=== PATIENT | male | born 1965 | race Caucasian/White ===

== ENCOUNTER 2025-01-11 06:00 | Day surgery (SDC) | payer OTHER ==
[2025-01-11] MEDS ORDERED: fentaNYL CITRATE 50 MCG/ML AMPUL IV ONE (08:30)
[2025-01-11] MEDS ORDERED: MIDAZOLAM HCL 2 MG/2 ML VIAL IV ONE (08:30)
[2025-01-11] MEDS ORDERED: DIPHENHYDRAMINE HCL 50 MG/ML VIAL 1ML IV ONE (08:30)
[2025-01-11] MEDS ORDERED: ENALAPRILAT DIHYDRATE 1.25 MG/ML VIAL IV ONE (08:40)
== END 2025-01-11 10:45 | disposition home or self-care (01) ==
LOC: AMB-ENDOS 06:00
PROVIDERS: ATTEND Surgery
DX: D12.8 Benign neoplasm of rectum (principal); K57.30 Diverticulosis of large intestine without perforation or abscess without bleeding; N32.1 Vesicointestinal fistula; R10.9 Unspecified abdominal pain

== ENCOUNTER 2025-05-29 12:43 | Inpatient (IN) | payer OTHER ==
[~2025-05-29] VITALS: Ht 174 cm; Wt 90.7 kg
[2025-05-29] MEDS ORDERED: HYDROCHLOROTH12.5 M2 PO (13:18)
[2025-05-29] MEDS ORDERED: NIFEDIPINE ER30 MG PO (13:19)
[2025-05-29] MEDS ORDERED: LOSARTAN POTASS50 MG PO (13:19)
[2025-05-29] MEDS ORDERED: ROSUVASTATIN CA20 MG PO (13:19)
[2025-06-01] MEDS ORDERED: BUPIVACAINE HCL/MPF 0.5% 30ML VIAL ONE (07:19)
[2025-06-01] MEDS ORDERED: CEFTRIAXONE SODIUM 2,000 MG VIAL ONE (07:19)
[2025-06-01] MEDS ORDERED: SUGAMMADEX SODIUM 200 MG/2 ML VIAL IV ONE (10:52)
[2025-06-01] MEDS ORDERED: BUPIVACAINE HCL 30 ML VIAL IJ ONE (11:30)
[2025-06-01] MEDS ORDERED: CEFTRIAXONE SODIUM 2,000 MG VIAL IV ONE (11:30)
[2025-06-01] MEDS ORDERED: METRONIDAZOLE/SODIUM CHLORIDE 500 MG/100 ML PIGGYBACK IV ONE ×2 (11:30→16:09)
[2025-06-01] MEDS ORDERED: LIDOCAINE HCL 1%/EPINEPHRINE 20ML VIAL IJ ONE (11:45)
[2025-06-01] MEDS ORDERED: ACETAMINOPHEN 500 MG GEL..CAP PO SCH (12:13)
[2025-06-01] MEDS ORDERED: OxyCODONE HCL 5 MG TABLET (ROXICODONE) PO PRN (12:15)
[2025-06-01] MEDS ORDERED: RINGERS SOLUTION,LACTATED 1,000 ML IV SCH (12:15)
[2025-06-01] MEDS ORDERED: ONDANSETRON HCL 2 MG/ML VIAL IV PRN (12:15)
[2025-06-01] MEDS ORDERED: MORPHINE SULFATE 4 MG/ML CARTRIDGE IV PRN (12:15)
[2025-06-01] MEDS ORDERED: HYOSCYAMINE SULFATE 0.125 MG TAB.SUBL SL SCH (13:00)
[2025-06-01] MEDS ORDERED: ENALAPRILAT DIHYDRATE 1.25 MG/ML VIAL IV PRN (13:15)
[2025-06-01] MEDS ORDERED: MORPHINE SULFATE 4 MG/ML VIAL IV ONE ×2 (13:40→14:10)
[2025-06-01] MEDS ORDERED: ENALAPRILAT DIHYDRATE 1.25 MG/ML VIAL IV ONE (16:08)
[2025-06-01] MEDS ORDERED: GABAPENTIN 300 MG CAPSULE PO ONE (16:08)
[2025-06-01] MEDS ORDERED: TAMSULOSIN HCL 0.4 MG CAP PO ONE (16:08)
[2025-06-01] MEDS ORDERED: HYOSCYAMINE SULFATE 0.125 MG TAB.SUBL ONE (16:08)
[2025-06-01] MEDS ORDERED: LABETALOL HCL 100 MG/20 ML ML ONE ×2 (16:46→18:42)
[2025-06-01] MEDS ORDERED: LABETALOL HCL 100 MG/20 ML ML IV STA (16:48)
[2025-06-01] MEDS ORDERED: TAMSULOSIN HCL 0.4 MG CAP PO SCH (17:00)
[2025-06-01] MEDS ORDERED: GABAPENTIN 300 MG CAPSULE PO SCH (17:00)
[2025-06-01] MEDS ORDERED: METRONIDAZOLE/SODIUM CHLORIDE 500 MG/100 ML PIGGYBACK IV SCH (17:00)
[2025-06-01] MEDS ORDERED: LACTOBACILLUS ACIDOPHILUS 1 CAP CAP PO SCH (17:00)
[2025-06-01] MEDS ORDERED: AMLODIPINE BESYLATE 5 MG TABLET PO ONE (18:45)
[2025-06-01] MEDS ORDERED: LABETALOL HCL 100 MG/20 ML ML IV ONE (18:45)
[2025-06-01] MEDS ORDERED: ACETAMINOPHEN 500 MG GEL..CAP PO ONE (19:23)
[2025-06-01 20:13] VITALS: BP 158/89; O2SAT 99
[2025-06-01] MEDS ORDERED: CIPROFLOXACIN IN 5 % DEXTROSE 400 MG/200 ML PIGGYBAG IV SCH (21:00)
[2025-06-01] MEDS ORDERED: FAMOTIDINE/PF 20 MG/2 ML VIAL IV PUSH SCH (21:00)
[2025-06-01 21:59] VITALS: BP 158/89; O2SAT 99
[2025-06-02 01:16] VITALS: BP 137/85; O2SAT 97
[2025-06-02 07:28] LABS: BUN CREA RATIO 14.0 (7.0-25.0); CREATININE SERUM 1.2 mg/dL (0.70-1.30); GFR 62.18; GLUCOSE FASTING 177.0 mg/dL (65-100); OSMOLALITY SERUM 280.0 MOSM/KG (275-295)
[2025-06-02 07:54] LABS: BASO % 0.3 % (0.1-1.2); EOS # 0.00 (0.04-0.54); EOS % 0.0 % (0.7-7.0); LYMPH # 0.70 (1.18-3.74); LYMPH % 5.8 % (19.3-53.1); MEAN PLATELET VOLUME 9.00 fl (9.4-12.4); MONO # 1.57 (0.24-0.82); NEUT # 9.81 (1.56-6.13); NEUT % 80.7 % (34.0-71.1); RED CELL DISTRIBUTION WIDTH 12.7 % (11.6-14.4)
[2025-06-02 08:09] LABS: MONO % 12.9 % (4.7-12.5)
[2025-06-02] MEDS ORDERED: NIFEDIPINE 30 MG TAB.SA.OSM PO SCH (09:00)
[2025-06-02] MEDS ORDERED: HYDROCHLOROTHIAZIDE 12.5 MG CAPSULE PO SCH (09:00)
[2025-06-02] MEDS ORDERED: LOSARTAN POTASSIUM 50 MG TABLET PO SCH (09:00)
[2025-06-02 16:00] VITALS: BP 99/60; O2SAT 95
[2025-06-02] MEDS ORDERED: TAMSULOSIN HCL 0.4 MG CAP PO SCH (17:00)
[2025-06-02] MEDS ORDERED: ENOXAPARIN SODIUM 40 MG/0.4 ML SYRINGE SUBCUTANEO SCH (17:00)
[2025-06-02] MEDS ORDERED: ROSUVASTATIN CALCIUM 20 MG TABLET PO SCH (17:00)
[2025-06-02] MEDS ORDERED: INSULIN LISPRO 1,000 UNIT/10 ML UNITS SUBCUTANEO PRN (19:30)
[2025-06-02] MEDS ORDERED: DEXTROSE 50 % IN WATER 0.5 G/ML VIAL IV PRN (19:30)
[2025-06-03 01:43] VITALS: BP 115/76; O2SAT 97
[2025-06-03 08:06] LABS: BASO % 0.2 % (0.1-1.2); EOS # 0.02 (0.04-0.54); EOS % 0.1 % (0.7-7.0); LYMPH # 0.95 (1.18-3.74); LYMPH % 5.8 % (19.3-53.1); MEAN PLATELET VOLUME 9.40 fl (9.4-12.4); MONO # 1.55 (0.24-0.82); MONO % 9.4 % (4.7-12.5); NEUT # 13.88 (1.56-6.13); NEUT % 84.0 % (34.0-71.1); RED CELL DISTRIBUTION WIDTH 12.9 % (11.6-14.4)
[2025-06-03 08:30] VITALS: BP 106/72; O2SAT 95
[2025-06-03 08:56] LABS: ALT/SGPT 40.0 U/L (12-78); AST/SGOT 42.0 U/L (15-37); BILIRUBIN TOTAL 0.74 mg/dL (0.3-1.2); BUN CREA RATIO 15.0 (7.0-25.0); CREATININE SERUM 1.42 mg/dL (0.70-1.30); GFR 51.21; GLOBULINA 3.2 G/DL (2.4-3.5); GLUCOSE FASTING 143.0 mg/dL (65-100); OSMOLALITY SERUM 283.0 MOSM/KG (275-295)
[2025-06-03] MEDS ORDERED: ENOXAPARIN SODIUM 40 MG/0.4 ML SYRINGE SUBCUTANEO SCH (09:00)
[2025-06-03] MEDS ORDERED: 0.9 % SODIUM CHLORIDE 500 ML IV STA (10:35)
[2025-06-03 16:00] VITALS: BP 133/82; BP 143/90; O2SAT 95
[2025-06-03] MEDS ORDERED: MORPHINE SULFATE 4 MG/ML CARTRIDGE IV PRN (18:15)
[2025-06-04 00:41] VITALS: BP 136/83; O2SAT 97
[2025-06-04 07:50] LABS: BASO % 0.3 % (0.1-1.2); EOS # 0.15 (0.04-0.54); EOS % 0.9 % (0.7-7.0); LYMPH # 0.72 (1.18-3.74); LYMPH % 4.3 % (19.3-53.1); MEAN PLATELET VOLUME 9.00 fl (9.4-12.4); MONO # 2.00 (0.24-0.82); NEUT # 13.53 (1.56-6.13); NEUT % 81.6 % (34.0-71.1); RED CELL DISTRIBUTION WIDTH 12.7 % (11.6-14.4)
[2025-06-04 07:56] LABS: MONO % 12.1 % (4.7-12.5)
[2025-06-04 08:28] LABS: BUN CREA RATIO 11.0 (7.0-25.0); CREATININE SERUM 2.97 mg/dL (0.70-1.30); GFR 21.85; GLUCOSE FASTING 131.0 mg/dL (65-100); OSMOLALITY SERUM 286.0 MOSM/KG (275-295)
[2025-06-04 09:03] VITALS: BP 131/88; O2SAT 96
[2025-06-04] MEDS ORDERED: hydrALAZINE HCL 20 MG VIAL IV PRN (16:00)
[2025-06-04] MEDS ORDERED: CEFTRIAXONE SODIUM 2,000 MG VIAL IV SCH (17:00)
[2025-06-04 17:24] VITALS: BP 143/89; O2SAT 97
[2025-06-04 20:19] LABS: URINE APPEARANCE Clear; URINE BILIRRUBIN Negative (NEGATIVE); URINE BLOOD Large; URINE COLOR Yellow; URINE GLUCOSE Negative (NEGATIVE); URINE KETONE Negative (NEGATIVE); URINE LEUKOCYTE Negative; URINE NITRATE Negative; URINE PROTEIN Trace (NEGATIVE); URINE UROBILINOGEN 0.2 E.U./dl
[2025-06-04 20:22] LABS: URINE EPITHELIAL CELLS 2.4 uL (0.0-38.8); URINE RBC 52.2 uL (0.0-20.8); URINE WBC 6.4 uL (0.0-23.2)
[2025-06-04 20:28] LABS: URINE BACTERIA 3.6 uL (0.0-1933); URINE CAST 0.00 uL (0.0-1.40)
[2025-06-05 01:47] VITALS: BP 132/78; O2SAT 98
[2025-06-05 07:10] LABS: BASO % 0.4 % (0.1-1.2); EOS # 0.16 (0.04-0.54); EOS % 1.2 % (0.7-7.0); LYMPH # 0.67 (1.18-3.74); LYMPH % 5.1 % (19.3-53.1); MEAN PLATELET VOLUME 8.90 fl (9.4-12.4); MONO # 1.34 (0.24-0.82); MONO % 10.1 % (4.7-12.5); NEUT # 10.96 (1.56-6.13); NEUT % 82.6 % (34.0-71.1); RED CELL DISTRIBUTION WIDTH 12.5 % (11.6-14.4)
[2025-06-05 07:53] LABS: ALT/SGPT 37.0 U/L (12-78); AST/SGOT 33.0 U/L (15-37); BILIRUBIN TOTAL 0.63 mg/dL (0.3-1.2); BUN CREA RATIO 15.0 (7.0-25.0); CREATININE SERUM 1.91 mg/dL (0.70-1.30); GFR 36.37; GLOBULINA 3.4 G/DL (2.4-3.5); GLUCOSE FASTING 129.0 mg/dL (65-100); OSMOLALITY SERUM 289.0 MOSM/KG (275-295)
[2025-06-05 08:44] VITALS: BP 155/95; O2SAT 96
[2025-06-05] MEDS ORDERED: FAMOTIDINE/PF 20 MG/2 ML VIAL IV PUSH SCH (09:00)
[2025-06-05] MEDS ORDERED: ENOXAPARIN SODIUM 30 MG/0.3 ML SYRINGE SUBCUTANEO SCH (09:00)
[2025-06-05 17:20] VITALS: BP 163/103; O2SAT 97
[2025-06-05] MEDS ORDERED: POTASSIUM BICARBONATE/CIT AC 25 MEQ TABLET.EFF PO SCH (19:15)
[2025-06-05] MEDS ORDERED: NIFEDIPINE 30 MG TAB.SA.OSM PO SCH (21:00)
[2025-06-05 21:34] VITALS: BP 137/80
[2025-06-06] VITALS: BP 117/77; O2SAT 95
[2025-06-06 07:36] LABS: BUN CREA RATIO 19.0 (7.0-25.0); CREATININE SERUM 1.17 mg/dL (0.70-1.30); GFR 64.03; GLUCOSE FASTING 136.0 mg/dL (65-100); OSMOLALITY SERUM 289.0 MOSM/KG (275-295)
[2025-06-06 09:13] VITALS: BP 138/82; O2SAT 95
[2025-06-06] MEDS ORDERED: POTASSIUM CHLORIDE 20MEQ/100ML H2O PB IV NR (11:30)
[2025-06-06 17:30] VITALS: BP 133/88; O2SAT 95
[2025-06-06] MEDS ORDERED: MORPHINE SULFATE 4 MG/ML CARTRIDGE IV PRN (18:15)
[2025-06-07 00:58] VITALS: BP 138/76; O2SAT 98
[2025-06-07 06:57] LABS: BASO % 0.4 % (0.1-1.2); EOS # 0.24 (0.04-0.54); EOS % 1.9 % (0.7-7.0); LYMPH # 1.05 (1.18-3.74); LYMPH % 8.2 % (19.3-53.1); MEAN PLATELET VOLUME 8.30 fl (9.4-12.4); MONO # 1.46 (0.24-0.82); MONO % 11.3 % (4.7-12.5); NEUT # 9.90 (1.56-6.13); NEUT % 76.9 % (34.0-71.1); RED CELL DISTRIBUTION WIDTH 12.3 % (11.6-14.4)
[2025-06-07 07:45] LABS: BUN CREA RATIO 17.0 (7.0-25.0); CREATININE SERUM 0.96 mg/dL (0.70-1.30); GFR 80.45; GLUCOSE FASTING 132.0 mg/dL (65-100); OSMOLALITY SERUM 281.0 MOSM/KG (275-295)
[2025-06-07] MEDS ORDERED: ENOXAPARIN SODIUM 40 MG/0.4 ML SYRINGE SUBCUTANEO SCH (09:00)
[2025-06-07] MEDS ORDERED: MAGNESIUM SULFATE IN WATER 50 ML IV NR (09:00)
[2025-06-07] MEDS ORDERED: POTASSIUM CHLORIDE 20MEQ/100ML H2O PB IV NR (11:00)
[2025-06-07 16:00] VITALS: BP 154/96; O2SAT 98
[2025-06-08 00:21] VITALS: BP 138/72; O2SAT 99
[2025-06-08 08:00] VITALS: BP 132/85; O2SAT 95
[2025-06-08 16:27] VITALS: BP 147/89; O2SAT 95
[2025-06-09 01:10] VITALS: BP 134/80; O2SAT 100
[2025-06-09 07:38] LABS: BASO % 0.5 % (0.1-1.2); EOS # 0.31 (0.04-0.54); EOS % 2.8 % (0.7-7.0); LYMPH # 1.27 (1.18-3.74); LYMPH % 11.4 % (19.3-53.1); MEAN PLATELET VOLUME 8.40 fl (9.4-12.4); MONO # 1.19 (0.24-0.82); MONO % 10.7 % (4.7-12.5); NEUT # 8.11 (1.56-6.13); NEUT % 72.6 % (34.0-71.1); RED CELL DISTRIBUTION WIDTH 12.3 % (11.6-14.4)
[2025-06-09 08:52] LABS: BUN CREA RATIO 16.0 (7.0-25.0); CREATININE SERUM 0.77 mg/dL (0.70-1.30); GFR 103.76; GLUCOSE FASTING 158.0 mg/dL (65-100); OSMOLALITY SERUM 279.0 MOSM/KG (275-295)
[2025-06-09] MEDS ORDERED: LACTOBACILLUS ACIDOPHILUS 1 CAP CAP PO SCH (09:00)
[2025-06-09] MEDS ORDERED: INTESTINEX680 M1 PO (09:47)
[2025-06-09] MEDS ORDERED: PERCOCET 5-3251 EACH PO (09:47)
[2025-06-09] MEDS ORDERED: PRILOSEC OTC20 MG PO (09:47)
[2025-06-09] MEDS ORDERED: NEURONTIN300 MG PO (09:47)
== END 2025-06-09 11:42 | disposition home or self-care (01) | DRG 330 ==
LOC: O/R 06-01 05:12 → SURH 06-01 07:00
PROVIDERS: Internal Medicine Geriatric Medicine; Internal Medicine Infectious Disease; Internal Medicine Nephrology; Specialist; Urology; ADMIT Surgery; ATTEND Surgery
PROC: 0DNW4ZZ Release Peritoneum, Percutaneous Endoscopic Approach (ICD-10-PCS; 2025-06-01)
PROC: 0TBB4ZZ Excision of Bladder, Percutaneous Endoscopic Approach (ICD-10-PCS; 2025-06-01)
PROC: 8E0W4CZ Robotic Assisted Procedure of Trunk Region, Percutaneous Endoscopic Approach (ICD-10-PCS; 2025-06-01)
PROC: 0DJD8ZZ Inspection of Lower Intestinal Tract, Via Natural or Artificial Opening Endoscopic (ICD-10-PCS; 2025-06-01)
PROC: 0DTN4ZZ Resection of Sigmoid Colon, Percutaneous Endoscopic Approach (ICD-10-PCS; principal; 2025-06-01 07:00)
PROC: 0DBP4ZZ Excision of Rectum, Percutaneous Endoscopic Approach (ICD-10-PCS; 2025-06-01 07:00)
PROC: 0T788ZZ Dilation of Bilateral Ureters, Via Natural or Artificial Opening Endoscopic (ICD-10-PCS; 2025-06-02)
PROC: BW21ZZZ Computerized Tomography (CT Scan) of Abdomen and Pelvis (ICD-10-PCS; 2025-06-05)
DX: K57.20 Diverticulitis of large intestine with perforation and abscess without bleeding (principal); K56.7 Ileus, unspecified; N17.9 Acute kidney failure, unspecified; N32.1 Vesicointestinal fistula; K91.89 Other postprocedural complications and disorders of digestive system; R59.0 Localized enlarged lymph nodes; K66.0 Peritoneal adhesions (postprocedural) (postinfection); I10 Essential (primary) hypertension; E87.6 Hypokalemia; D64.9 Anemia, unspecified
CPT/HCPCS: 44207; 44213; S2900